=== PATIENT | female | born 1950 ===

== ENCOUNTER 2017-08-28 09:10 | Outpatient (CLI) | payer MEDICARE, OTHER ==
--- NOTE | 2017-08-28 13:04 | MRI ---
MRI THORACIC SPINE WITHOUT CONTRAST: Comparison: None. History: Acute low back pain with right sided sciatic. Sharp pain in the upper and mid back for one year. Technique: Multiplanar, multisequence MR images were obtained without contrast. FINDINGS: Generalized disc desiccation is seen. Vertebral bodies and intervertebral discs demonstrate normal h eight and alignment without fracture or subluxation. The visualized cord demonstrates normal signal throughout. The prevertebral and paraspinal soft tissues are unremarkable. Endplate degenerative melissa nges are seen surrounding the T8-9 intervertebral disc. There is a small to moderate disc osteophyte complex at T10-11 which protrudes into the central shania l causing moderate central canal stenosis. This also causes moderate left and mild right neural fora chris stenosis. The other intervertebral discs throughout the thoracic spine show no significant pos terior bulge or protrusion. No other areas of central canal or neural foraminal stenosis are seen. 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 POS: [facility]
--- NOTE | 2017-08-28 13:09 | MRI ---
LUMBAR SPINE MRI WITHOUT CONTRAST: Date: 08-28-17 Comparison: None. History: Acute midline low back pain with right sided sciatic, numbness in middle three toes of bot h feet. Technique: Multiplanar, multisequence MR imaging of the lumbar spine obtained without contrast. FINDINGS: The sagittal STIR imaging demonstrates no focal area of osseous marrow edema. There is no anterolisthesis or retrolisthesis seen. Assuming five lumbar type vertebral bodies, conus medullaris terminates at T12-L1. T12-L1: Mild bilateral facet hypertrophy. No significant central canal or neural foraminal stenosis. L1-2: Mild bilateral facet hypertrophy and hypertrophy of ligamentum flavum. Intervertebral disc hei ght and signal intensity within normal limits with no central canal or neural foraminal stenosis. L2-3: Mild bilateral facet hypertrophy. Disc space narrowing, disc desiccation and mild disc bulge p resent. No associated central canal stenosis or neural foraminal stenosis. L3-4: There is bilateral facet hypertrophy. There is disc desiccation and disc space narrowing with a small left paracentral/left foraminal disc protrusion. Minimal left lateral recess stenosis noted. No significant neural foraminal stenosis on either side. L4-5: Disc desiccation and disc space narrowing. Mild bilateral facet hypertrophy. No significant ce ntral canal or neural foraminal stenosis. L5-S1: Bilateral facet hypertrophy, right greater than left. No significant central canal or neural foraminal stenosis. Imaged retroperitoneal structures appear grossly unremarkable. IMPRESSION: 1. Degenerative changes as detailed above. No high grade central canal or neural foraminal stenosis. POS: [facility]
== END 2017-08-28 09:11 | disposition home or self-care (01) ==
LOC: SCSMRI 09:10
PROVIDERS: ATTEND Family Medicine
DX: M54.41 Lumbago with sciatica, right side (principal); M47.816 Spondylosis without myelopathy or radiculopathy, lumbar region; M48.04 Spinal stenosis, thoracic region; M25.78 Osteophyte, vertebrae
CPT/HCPCS: 72146; 72148

== ENCOUNTER 2017-10-28 06:48 | Outpatient (CLI) | payer MEDICARE, OTHER ==
[2017-10-28] MEDS ORDERED: Iopamidol 370 76% 100 ML VIAL ONE (13:11)
--- NOTE | 2017-10-28 13:11 | CT ---
CTA OF THE THORAX UTILIZING IV CONTRAST AND 3D REFORMATTED IMAGING: INDICATION: Concern for aortic aneurysm. FINDINGS: The ascending aorta measures 3.8 cm. The thoracic aortic arch measures 2.6 cm. The descending thora cic aorta at the level of the right main pulmonary artery measures 2.4 cm. The right main pulmonary artery measures 2.5 cm. The left main pulmonary artery measures 2.7 cm. There are vascular calcifications involving the aortic arch and great vessels. There are coronary ar mathew calcifications. There is a stent seen within the proximal to mid aspect of the right coronary a rtery. No airspace consolidation or pleural effusion is evident. There is a fat-containing right-sided Lilian dalek hernia. No focal hepatic lesion is evident. The left adrenal gland appears within normal limits. There is a 1.3 cm nodule seen within the right adrenal gland that is incompletely characterized on th e current study. Scattered degenerative and osteoarthritic change. IMPRESSION: 1. No pepito aortic dissection, aneurysm, or occlusion demonstrated involving the thoracic aorta. Th ere are moderate calcifications involving the thoracic aortic arch and great vessels of the neck. Th e ascending aorta measures up to 3.8 cm and is mildly ectatic. 2. There is slight prominence of the pulmonary arteries bilaterally which may reflect changes of und erlying pulmonary artery hypertension. 3. Right coronary artery stent. 4. 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 5. Right adrenal nodule incompletely characterized on the current exam. If clinically indicated, fo llowup CT of the abdomen utilizing adrenal mass protocol may be helpful. POS: [facility]
== END 2017-10-28 06:49 | disposition home or self-care (01) ==
LOC: BICCT 06:48 → CT 06:49
PROVIDERS: ATTEND Internal Medicine Cardiovascular Disease
DX: I71.9 Aortic aneurysm of unspecified site, without rupture (principal); I70.0 Atherosclerosis of aorta; K44.9 Diaphragmatic hernia without obstruction or gangrene; E27.9 Disorder of adrenal gland, unspecified; Z98.890 Other specified postprocedural states
CPT/HCPCS: 71275